=== PATIENT | male | born 1965 | race Caucasian/White ===

== ENCOUNTER 2017-10-09 06:31 | Inpatient (IN) | payer BC ==
[2017-09-10 11:50] VITALS: BMI 35.0
--- NOTE | 2017-09-10 12:22 | PAT Medication Instructions ---
Service Date Sep 10, 2017. Current Home Medication List Aspirin (Aspirin Ec), 81 MG PO QAM Cetirizine (Zyrtec), 10 MG PO HS Diclofenac (Voltaren), 75 MG PO BID Esomeprazole Magnesium (Nexium), 20 MG PO QAM Multivitamin (Multivitamin), 1 TAB PO QAM Simvastatin (Zocor), 20 MG PO QPM Medication Instructions For Your Scheduled Surgery - Hold the following medications 10 days prior to surgery per your surgeon's instructions: Diclofenac (Voltaren), 75 MG PO BID - Hold the following medications the morning of surgery: Multivitamin (Multivitamin), 1 TAB PO QAM - Take the following medications the morning of surgery with a sip of water: Aspirin (Aspirin Ec), 81 MG PO QAM Esomeprazole Magnesium (Nexium), 20 MG PO QAM - Take the following medications as scheduled the night before surgery: Cetirizine (Zyrtec), 10 MG PO HS Simvastatin (Zocor), 20 MG PO QPM If you have any questions please call us at [phone] or [phone] or [phone]
--- NOTE | 2017-09-10 13:07 | DIAGNOSTIC IMAGING REPORT ---
TWO VIEW CHEST CLINICAL HISTORY: Preoperative examination. FINDINGS: PA and lateral chest radiographs are compared to study dated 05/17/2016. The heart is enlarged. The pulmonary vasculature is noncongested. The lungs and pleural spaces are clear. There is no pneumothorax. The bony thorax appears intact. Fusion hardware is noted in the lower cervical spine. IMPRESSION: Cardiac enlargement with no active disease in the chest. Electronically signed by: Erwin Diaz M.D. 09/10/2017 1:05 PM Dictated Date/Time: 09/10/2017 1:04 PM
[2017-09-10 13:30] LABS: BASO % 0.6 %; BASO ABS # 0.03 K/uL (0-0.2); EOS % 3.9 %; HEMATOCRIT 40.3 % (42-52); HEMOGLOBIN 13.3 g/dL (14.0-18.0); LYMPH % 35.3 %; MEAN CELL VOLUME 93.5 fL (80-100); MEAN CORPUSCULAR HEMOGLOBIN 30.9 pg (25-34); MEAN PLATELET VOLUME 11.1 fL (7.4-10.4); MONO % 9.4 %; MONO ABS # 0.48 K/uL (0.11-0.59); NEUT % 50.8 %; NEUT ABS # 2.59 K/uL (1.4-6.5); PLATELET COUNT 196 K/uL (130-400); RED CELL DISTRIBUTION WIDTH CV 12.3 % (11.5-14.5)
[2017-09-10 13:44] LABS: PTT PATIENT 24.8 SECONDS (21.0-31.0)
[2017-09-10 14:06] LABS: CALCIUM 8.8 mg/dl (8.5-10.1); CREATININE 0.86 mg/dl (0.60-1.40); POTASSIUM 4.2 mmol/L (3.5-5.1)
--- NOTE | 2017-10-06 23:08 | HISTORY & PHYSICAL EXAMINATION ---
DATE OF ADMISSION: 10/09/2017 CHIEF COMPLAINT: Right knee pain and discomfort. HISTORY OF PRESENT ILLNESS: A 51-year-old gentleman who is now about 15 months out from right total hip replacement, who presents for surgical treatment of his right knee. He has got a long history of right knee problems. He had ACL reconstructed by Dr. Potter at [facility] 20 years ago. Over the past 5 years, he developed increased pain and discomfort in his knee. We have been treating him with injections which have become less successful over time. His knee hurts all the time. The more he walks, the more it hurts. If he is real active in a day, he really pays for it the next day. He would like to proceed with surgical treatment. PAST MEDICAL HISTORY: 1. Elevated cholesterol. 2. Sleep apnea, with CPAP machine. 3. Neck arthritis. 4. Gastroesophageal reflux disease. 5. Mild obesity. PREVIOUS SURGERIES: Include: 1. Right total hip replacement done 06/16/2016. 2. Left knee scope done 03/28/2011. 3. Right knee bone patella tendon bone [place] [address] Potter. 4. C6/7 neck surgery in 2005. ALLERGIES: YEAST. CURRENT MEDICATIONS: Diclofenac and simvastatin. SOCIAL HISTORY: He is a 51-year-old male. He is from [facility]. He does not smoke. No significant alcohol intake. FAMILY HISTORY: Negative for heart disease, blood clots or diabetes. REVIEW OF SYSTEMS: Negative for diabetes, neurologic problems, vascular problems, bleeding disorders. No chest pain or shortness of breath. No history of DVT or PE. PHYSICAL EXAMINATION: GENERAL: Reveals a healthy, pleasant middle-aged male. He looks to be in good health. HEENT: Benign. NECK: Supple. No lymphadenopathy. LUNGS: Clear to auscultation. HEART: Regular rate and rhythm. ABDOMEN: Soft, nontender, nondistended. EXTREMITIES: Grossly neurovascularly intact except as follows: Examination of the right knee and leg reveals the patient ambulates independently. Does limp a little bit on the right side. He has got well healed incisions around his right knee. Small knee effusion. He has got bony hypertrophy both medially and laterally. Range of motion is 5 to about 120. No instability. X-RAYS: X-rays of the right knee reviewed, show right knee tricompartmental DJD. He has got evidence of previous ACL reconstruction with interference screws in place. ASSESSMENT: A 51-year-old gentleman 20 years out from right knee anterior cruciate ligament reconstruction with right knee pain and discomfort consistent with some degenerative joint disease. He has failed conservative treatment and would like to proceed with surgical treatment. PLAN: We will take him to the operating room and do right total knee replacement. The risks and benefits of this procedure were explained to the patient including but not limited to DVT, PE, , infection, neurological injury, vascular injury, bleeding problem, pain, limited range of motion, stiffness, failure to relieve symptoms, incomplete relief of symptoms, need for further surgery in the future, fracture, leg length inequality, nerve palsy, need for blood transfusion and need for further surgery in the future. He knows the history ____ this may wear out, need to be redone in the future, he is aware and would like to proceed. He stopped his diclofenac 10 days preop. He will bring his CPAP machine to the hospital. We will be planning on taking the hardware out if needed only. See him back 2 weeks postop.
[2017-10-09] VITALS (8 sets, daily range): BP systolic 115–142; BP diastolic 75–91; PULSE 53–67; TEMP 36.4–37; O2SAT 95–100; Ht 190.5 cm; Wt 128.8 kg
[~2017-10-09] VITALS: Ht 190.5 cm; Wt 128.8 kg
[2017-10-09] MEDS: TRANEXAMIC ACID INJ 1,000 MG x 2 Bags IV SCH ×2 (06:30)
[~2017-10-09 06:31] MED LIST: ACETAMINOPHEN 500 MG TAB PO SCH; ASPI81TA28 PO; BUPIVACAINE LIPOSOME 266 MG, BUPIVACAINE/EPINEPHRINE INJ 50 ML, SODIUM CHLORIDE 0.9% PF... INFIL SCH; CEFAZOLIN 3000MG IV PUSH 22.5 ML IV SCH; CETI10TA84 PO; DICL-201 PO; ESOM20CA PO; FAMOTIDINE 20 MG TAB PO SCH; GABAPENTIN 600 MG PO SCH; LACTATED RINGER'S 1000ML 1,000 ML IV SCH; LACTATED RINGER'S 1000ML 500 ML IV SCH; METOCLOPRAMIDE HCL 10 MG TAB PO SCH; MULT-506 PO; SCOPOLAMINE 1.5 MG TDSY TD SCH; SIMV20TA2 PO
--- NOTE | 2017-10-09 06:52 | History & Physical Bridge Note ---
H&P Re-Evaluation Bridge Note: I have examined the patient, reviewed the History & Physical and in the interval since the performance of the History & Physical I have noted the following changes of clinical significance: No changes noted
[2017-10-09] MEDS ORDERED: MIDAZOLAM HCL 1 MG/ML 2ML VIAL ONE ×2 (07:13→10:37)
[2017-10-09] MEDS ORDERED: BUPIVACAINE 0.5 % 5 MG/1 ML PF 10ML VIAL ONE (07:21)
[2017-10-09] MEDS ORDERED: ROPIVACAINE 0.5% 5 MG/ML 30 ML VIAL ONE (07:21)
[2017-10-09] MEDS ORDERED: PHENYLEPHRINE 100MCG/ML 5ML SYR IV PRN (08:00)
[2017-10-09] MEDS ORDERED: EpHEDrine SULFATE INJ 50 MG/ML AMP IV PRN (08:00)
[2017-10-09] MEDS ORDERED: ONDANSETRON INJ 2 MG/ML 2 ML VIAL IV PRN ×2 (08:00→11:15)
[2017-10-09] MEDS ORDERED: ATROPINE SULFATE 0.1 MG/ML 5ML SYR IV PRN (08:00)
[2017-10-09] MEDS ORDERED: HYDROmorphone INJ 2 MG/ML SYR/VIAL IV PRN (08:00)
[2017-10-09] MEDS ORDERED: SODIUM CHLORIDE 0.9% PF 50 ML VIAL ONE (08:53)
[2017-10-09] MEDS ORDERED: BACITRACIN 50000 UNIT VIAL ONE (08:53)
[2017-10-09] MEDS ORDERED: BUPIVACAINE LIPOSOME 1/3% 266 MG/20 ML VIAL INFIL ONE (08:53)
[2017-10-09] MEDS ORDERED: BUPIVACAINE 0.25% 30 ML VIAL ONE (08:54)
[2017-10-09] MEDS ORDERED: VANCOMYCIN HCL 1000MG/20ML VIAL ONE (08:54)
[2017-10-09] MEDS ORDERED: FENTANYL CITRATE INJ 50 MCG/1 ML 2 ML VIAL ONE (09:25)
[2017-10-09] MEDS ORDERED: PROPOFOL IV EMULSION 10 MG/ML 20 ML VIAL IV ONE (09:49)
[2017-10-09] MEDS ORDERED: EpINEphrine HCL INJ 1 MG/ML 1ML SYRINGE IV ONE (10:22)
[2017-10-09] MEDS ORDERED: METOCLOPRAMIDE HCL INJ 5 MG/ML 2 ML VIAL IV PRN (11:15)
[2017-10-09] MEDS ORDERED: BISACODYL 10 MG SUPP PR PRN (11:15)
[2017-10-09] MEDS ORDERED: MoRPHine SULFATE 2 MG/ML CARP IV PRN (11:15)
[2017-10-09] MEDS ORDERED: CEFAZOLIN IV 2,000 MG in DEXTROSE 5% 50ML 50 ML IV SCH (11:15)
[2017-10-09] MEDS ORDERED: TAMSULOSIN HCL 0.4 MG CAP PO PRN (11:15)
[2017-10-09] MEDS ORDERED: ALUMINUM/MAGNESIUM/SIMETH (MAALOX MAX) 30 ML UDC PO PRN (11:15)
[2017-10-09] MEDS ORDERED: SILVER SULFADIAZINE 1% CR 50 GM JAR EXT PRN (11:15)
[2017-10-09] MEDS ORDERED: ZOLPIDEM TARTRATE 5 MG TAB PO PRN (11:15)
[2017-10-09] MEDS ORDERED: DiphenhydrAMINE HCL 50 MG/ML VIAL IV PRN (11:15)
[2017-10-09] MEDS ORDERED: MAGNESIUM HYDROXIDE SUSP 30 ML UDC PO PRN (11:15)
--- NOTE | 2017-10-09 11:15 | [facility] Post Operative Brief Note ---
Immediate Operative Summary Operative Date Oct 09, 2017. Pre-Operative Diagnosis Right knee Degenerative Joint Disease S/P ACL Reconstruction Post-Operative Diagnosis Same as preop Procedure(s) Performed Right Total Knee Arthroplasty; with Hardware Removal from Previous Anterior Cruciate Ligament Repair Surgeon Dr. Hebert Glass Cutter Surgeon(s) Bernardino Velazco PA-C Estimated Blood Loss 50 ml Findings Consistent with Post-Op Diagnosis Fluids (cc crystalloids) 2000 cc Specimens A. Right Knee Bone and Tissue Drains None Anesthesia Type MAC Spinal Regional Complication(s) none Disposition Accompanied Pt To Recover: no Disposition: Recovery Room / PACU
--- NOTE | 2017-10-09 11:52 | Anesthesiology Progress Note ---
Anesthesia Post Op Note Date & Time Oct 09, 2017 at 11:51 Vital Signs Pain Intensity: 0 Vital Signs Past 12 Hours Date Time Temp Pulse Resp B/P (MAP) Pulse Ox O2 Delivery O2 Flow Rate FiO2 10/09/17 11:31 113/71 10/09/17 11:29 57 15 10/09/17 11:29 58 15 99 10/09/17 11:26 114/74 10/09/17 11:24 54 15 10/09/17 11:24 54 15 100 10/09/17 11:21 110/70 10/09/17 11:20 111/73 10/09/17 11:20 36.2 57 12 111/73 96 Nasal Cannula 2 10/09/17 07:04 36.6 67 16 136/86 99 Room Air Notes Mental Status: alert / awake / arousable, participated in evaluation Pt Amnestic to Procedure: Yes Nausea / Vomiting: adequately controlled Pain: adequately controlled Airway Patency, RR, SpO2: stable & adequate BP & HR: stable & adequate Hydration State: stable & adequate Anesthetic Complications: no major complications apparent
--- NOTE | 2017-10-09 12:10 | DIAGNOSTIC IMAGING REPORT ---
R KNEE 2 VIEWS ROUTINE CLINICAL HISTORY: Degenerative arthritis. Postoperative study COMPARISON: None. DISCUSSION: There are postsurgical changes of a total right knee arthroplasty and patellar resurfacing. There is an interference screw within the proximal tibia possibly related to a prior ACL repair the femoral tibial components appear well seated. There is air in the soft tissues consistent with recent surgery. Overlying skin susan are evident IMPRESSION: Postsurgical changes of a total right knee arthroplasty Electronically signed by: Rubens Garcia M.D. 10/09/2017 12:08 PM Dictated Date/Time: 10/09/2017 12:07 PM
--- NOTE | 2017-10-09 12:52 | OPERATIVE REPORT ---
DATE OF OPERATION: 10/09/2017 SURGEON: Dr. Aris Hebert. RIBBON LAP MACHINE TENDER: MAGO Salgado PREOPERATIVE DIAGNOSES: Right knee degenerative joint disease status post anterior cruciate ligament reconstruction. POSTOPERATIVE DIAGNOSES: Same. PROCEDURE PERFORMED: 1. Right total knee replacement. 2. Right knee deep hardware removal. COMPLICATIONS: None. ESTIMATED BLOOD LOSS: 50 mL. FLUID REPLACEMENT: 2000 mL crystalloid fluid replacement. ANESTHESIA: Spinal with adductor canal block. DRAINS: None. SPECIMENS: Right knee sent for pathology. OPERATIVE INDICATIONS: The patient is a 51-year-old fairly active gentleman, who has had a long history of right knee problems. He underwent an ACL reconstruction 20 years ago, done in [place]. Over the past 5 years, he has developed increased pain and discomfort in his knee. I have been following him and put injections in his knee, which became less successful over time. X-rays showed moderate to advanced knee DJD. He elected to proceed with total knee arthroplasty. Of note, the patient had his right hip replaced a little over year ago and has done well from that. OPERATIVE FINDINGS: Operative findings revealed right knee DJD. He had fairly extensive grade 3 changes in all 3 compartments. He had some focal grade 4 changes primarily in the medial compartment, but also scattered elsewhere. Moderate size joint effusion. His arthritis was not quite as bad as expected based on his history and radiographs. His ACL was nearly completely absent. OPERATIVE IMPLANTS: Operative implants consisted of: 1. Biomet Vanguard size 70 right posterior stabilized femoral component. 2. Biomet size 75 tibial tray. 3. A 10-mm posterior stabilized polyethylene insert. 4. A 34 x 8.5 all poly patella. OPERATIVE PROCEDURE: The patient was taken to the operating room, identified and placed on the operating table in the supine position. All contact areas were appropriately padded. IV antibiotics were provided by anesthesia team. A spinal anesthetic and adductor canal block had been provided in the holding area. Wiggins catheter was placed in sterile fashion. A right thigh tourniquet was then placed and the right lower extremity was then prepped and draped in the usual sterile fashion. The right leg was elevated and exsanguinated with Esmarch and tourniquet was placed at 300 mmHg. An anterior approach to the right knee was then performed through a longitudinal incision centered over the patella. Sharp dissection was carried out through the subcutaneous tissues down to the level of the extensor mechanism. A medial parapatellar arthrotomy incision was made. Some subperiosteal dissection was carried out medially. The fat pad was resected from beneath the patellar tendon. I did have to release this a little bit as it was scarred from his previous ACL harvest site. The lateral patellofemoral ligament was released. The patella was subluxated laterally and the knee was flexed. The osteophytes were taken off the distal femur. The ACL and PCL were then released from the distal femur. Of note, there was not much residual ACL remaining. The tibia subluxated anteriorly. The external tibial alignment jig was then placed in the anterior face of the tibia and adjusted 14 mm medially. Proximal tibial cut was made to remove about 3-4 mm of bone from the medial side. There was not much bone destruction and therefore, we took a little extra amount of bone to confer this. Attention was then drawn to the femur. The distal femur was entered with the sharp drill. I attempted to place this down the canal, but I ran into the interference screw. Therefore, I had to spend some time finding the interference screw. I spent 15 minutes cleaning the intercondylar notch area and very carefully and meticulously removing bone with a curette as well as small osteotome until I found the interference screw. The interference screw was removed without incident. The intramedullary canal was then entered again and the IM mathieu was placed up the IM canal without difficulty. A right 6-degree valgus cutting guide was placed. The distal femoral cutting block was pinned in place. Distal femoral cut was made to take an additional 3 mm of bone off the distal femur. The femur was then sized to a size 70. We downsized this slightly. The AP cutting block was pinned parallel to the epicondylar axis, which was 3 degrees of external rotation. The anterior cut, anterior chamfer, posterior cut, and posterior chamfer cuts were made. Box cutting guide was placed and adjusted slightly lateral and the box cut was made. The knee was flexed. The remnants of the medial and lateral menisci were excised. The osteophytes were taken off the posterior aspect of the femur. A trial femoral component was placed. Tibial tray was pinned in maximum external rotation and drill and stem punch were used to create defect in proximal tibia for the tibial tray. I took great care to make sure that we were not going to run into the tibial interference screw and we left this in place. The tibia was then trialed and the tibia was then drilled and punched for the keel. The tibia was tried and a 10-mm insert fit most appropriately. Attention was then drawn to the patella. The patella was cleaned of all soft tissues. Patella thickness measured 23 mm and it was cut down to 15. I left it a little thicker due to the previous bone harvest from the patella for the ACL reconstruction. It did not look like they bone grafted the patellar defect. Having said that, we did not run into a deficient bone. The patella was then sized to a size 34. Lug holes were drilled for a 34 patella. Lateral osteophyte was removed. Patella button was placed. Knee was taken through range of motion and patella tracked nicely with no thumbs test. Attention was then drawn toward placement of the permanent components. All trial components were removed. A bone plug was placed in the distal femur to limit blood loss. A double batch of Palacos G cement was mixed. I had to add an additional gram of vancomycin due to his history of previous surgeries in the past. A right size 70 posterior stabilized femoral component, a size 75 tibial tray, a 10-mm posterior stabilized polyethylene insert, and a 34 x 8.5 all poly patella were then cemented in place. Knee was brought out into full extension until cement hardened. A final cement check was then performed. Pericapsular tissues were injected with a total of 100 mL of a combination of 20 mL of Exparel, 30 mL of normal saline, and 50 mL of 0.25% Marcaine with epinephrine. The patient did receive 1 gram of tranexamic acid. The tourniquet was then let down for final tourniquet time of 74 minutes. Hemostasis was assured with the use of electrocautery. The wound was once again irrigated. The extensor mechanism was then closed with a combination of #1 PDS suture and #1 Vicryl suture in a [id number] fashion. Extensor mechanism was checked and found to be intact. The subcutaneous tissues were then closed with 2-0 Dexon suture in a buried interrupted fashion. Skin was closed with skin susan. The leg was then cleaned and dried and a sterile dressing of Xeroform, 4 x 4, sterile cast padding and Carrillo bandage were applied. The patient then transferred to the recovery room in stable condition. The patient tolerated the procedure well with no complications. All needle and sponge counts were correct at the end of the operation. I attest to the content of the Intraoperative Record and any orders documented therein. Any exceptions are noted below. MTDD
[2017-10-09] MEDS: D5W AND 1/2NSS + 20MEQ KCL 1,000 ML IV SCH ×2 (13:42→20:08)
[2017-10-09] MEDS: ACETAMINOPHEN 500 MG TAB PO SCH ×2 (13:42→21:35)
[2017-10-09] MEDS: OXYCODONE HCL IR 5 MG TAB (IMMEDIATE RELEASE) PO PRN (15:13)
[2017-10-09] MEDS: CHECK SCOPOLAMINE PATCH PLACEMENT SCH (15:14)
[2017-10-09] MEDS ORDERED: TRANEXAMIC ACID INJ 1,000 MG in SODIUM CHLORIDE 0.9% 100ML 100 ML IV SCH (17:00)
[2017-10-09] MEDS: KETOROLAC TROMETHAMINE 30 MG/ML VIAL IV. SCH (17:27)
[2017-10-09] MEDS: CEFAZOLIN IV 2,000 MG in SYRINGE 0 ML IV SCH (17:47)
--- NOTE | 2017-10-09 17:47 | PROGRESS NOTE ---
DATE: 10/09/2017 SUBJECTIVE: A 51-year-old gentleman postop from a right knee replacement. He is doing pretty well. The block wore off and he is pretty painful. Denies any chest pain or shortness of breath. Not feeling dizzy or lightheaded. OBJECTIVE: VITAL SIGNS: Temperature 36.7. Vital signs stable. GENERAL: Reveals a pleasant, middle-aged male. He is sitting up in bed, looks reasonably comfortable. He is talking to his . LUNGS: Clear to auscultation. HEART: Regular rate and rhythm. ABDOMEN: Soft, nontender, nondistended. EXTREMITIES: Grossly neurovascularly intact except as follows. Examination of the right lower extremity reveals the leg to be well aligned. He can dorsiflex and plantarflex his foot appropriately. He is neurologically intact. Good distal pulses and brisk refill. ASSESSMENT: A 51-year-old gentleman postop from a right knee replacement and hardware removal, doing well. His pain is reasonably well controlled. We need to catch up a little bit as the block is worn off. He is neurologically intact. PLAN: 1. DVT prophylaxis including thigh-high TEDs, SCDs, and aspirin twice a day. 2. PT/OT. Weightbearing as tolerated. Right total knee protocol. 3. Pain control. Doing okay with current pain regimen. We will need to catch up a little bit now as the spinal has worn off. 4. IV antibiotics x24 hours. 5. Disposition: Plan to discharge to home and likely do outpatient therapy.
[2017-10-09] MEDS: FERROUS GLUCONATE 324 MG TAB PO SCH (17:53)
[2017-10-09] MEDS: SENNA 8.6 MG TAB PO SCH (21:34)
[2017-10-09] MEDS: DOCUSATE SODIUM 100 MG CAP PO SCH (21:34)
[2017-10-09] MEDS: CETIRIZINE HCL 10 MG TAB PO SCH (21:34)
[2017-10-09] MEDS: SIMVASTATIN 20 MG TAB PO SCH (21:35)
[2017-10-09] MEDS: ASPIRIN 81 MG ECTAB PO SCH (21:35)
[2017-10-09] MEDS: TAPENTADOL ER 50 MG TABCR PO SCH (21:35)
[2017-10-10] VITALS (8 sets, daily range): BP systolic 104–144; BP diastolic 63–86; PULSE 64–70; TEMP 36.6–37.2; O2SAT 95–99
[2017-10-10] MEDS: CHECK SCOPOLAMINE PATCH PLACEMENT SCH ×4 (00:27→23:47)
[2017-10-10] MEDS: KETOROLAC TROMETHAMINE 30 MG/ML VIAL IV. SCH ×5 (00:28→23:46)
[2017-10-10] MEDS: D5W AND 1/2NSS + 20MEQ KCL 1,000 ML IV SCH ×2 (01:35→08:27)
[2017-10-10] MEDS: CEFAZOLIN IV 2,000 MG in SYRINGE 0 ML IV SCH (01:35)
[2017-10-10] MEDS: ACETAMINOPHEN 500 MG TAB PO SCH ×3 (05:29→21:06)
[2017-10-10 06:19] LABS: HEMATOCRIT 36.7 % (42-52); HEMOGLOBIN 12.4 g/dL (14.0-18.0); MEAN CELL VOLUME 93.9 fL (80-100); MEAN CORPUSCULAR HEMOGLOBIN 31.7 pg (25-34); MEAN CORPUSCULAR HGB CONC 33.8 g/dl (32-36); MEAN PLATELET VOLUME 9.8 fL (7.4-10.4); PLATELET COUNT 177 K/uL (130-400); RED CELL DISTRIBUTION WIDTH CV 12.6 % (11.5-14.5); RED CELL DISTRIBUTION WIDTH SD 42.4 fL (36.4-46.3); WHITE BLOOD COUNT 7.39 K/uL (4.8-10.8)
[2017-10-10] MEDS: TRANEXAMIC ACID INJ 1,000 MG x 2 Bags IV SCH ×2 (06:30)
[2017-10-10 06:52] LABS: CREATININE 1.03 mg/dl (0.60-1.40); POTASSIUM 4.1 mmol/L (3.5-5.1)
--- NOTE | 2017-10-10 08:04 | Anesthesiology Progress Note ---
Anesthesia Post Op Note Date & Time Oct 10, 2017 at 08:04 Vital Signs Pain Intensity: 6.0 Vital Signs Past 12 Hours Date Time Temp Pulse Resp B/P (MAP) Pulse Ox O2 Delivery O2 Flow Rate FiO2 10/10/17 07:53 36.9 66 16 120/84 (96) 99 Room Air 10/10/17 07:10 Room Air 10/10/17 03:30 36.6 64 16 122/77 (92) 95 Room Air 10/10/17 01:16 16 95 Room Air 10/10/17 00:25 Room Air 10/09/17 23:17 37.0 61 15 115/75 (88) 96 Room Air 10/09/17 22:00 CPAP 10/09/17 20:42 37.0 61 16 135/83 (100) 95 Room Air Notes Mental Status: alert / awake / arousable, participated in evaluation Pt Amnestic to Procedure: Yes Nausea / Vomiting: adequately controlled Pain: adequately controlled Airway Patency, RR, SpO2: stable & adequate BP & HR: stable & adequate Hydration State: stable & adequate Neuraxial Anesthesia: was administered, sensory block resolved Anesthetic Complications: no major complications apparent
[2017-10-10] MEDS: FERROUS GLUCONATE 324 MG TAB PO SCH ×3 (08:28→17:47)
[2017-10-10] MEDS: MULTIVITAMIN TAB PO SCH (08:28)
[2017-10-10] MEDS: ASPIRIN 81 MG ECTAB PO SCH ×2 (08:28→21:06)
[2017-10-10] MEDS: DOCUSATE SODIUM 100 MG CAP PO SCH ×2 (08:28→21:06)
[2017-10-10] MEDS: PANTOprazole SOD 40 MG TAB PO SCH (08:28)
[2017-10-10] MEDS: TAPENTADOL ER 50 MG TABCR PO SCH ×2 (08:31→21:04)
[2017-10-10] MEDS: OXYCODONE HCL IR 5 MG TAB (IMMEDIATE RELEASE) PO PRN ×4 (08:31→21:05)
[2017-10-10] MEDS ORDERED: MULTIVITAMIN TAB PO SCH (09:00)
[2017-10-10] MEDS ORDERED: PANTOprazole SOD 40 MG TAB PO SCH (09:00)
--- NOTE | 2017-10-10 20:35 | PROGRESS NOTE ---
DATE: 10/10/2017 SUBJECTIVE: A 51-year-old gentleman postop day #1 from a right knee replacement. Doing pretty well. Pain has been reasonably well controlled. No chest pain or shortness of breath. Not feeling dizzy or lightheaded. OBJECTIVE: VITAL SIGNS: Temperature 37.2. Vital signs stable. GENERAL: Reveals a pleasant, middle-aged male. He is sitting in his bedside chair and looks pretty comfortable. EXTREMITIES: Examination of the right leg reveals the dressing to be clean, dry, and intact. He can dorsiflex and plantarflex his foot appropriately. He is neurologically intact. LABORATORY DATA: Hemoglobin 12.4. Hematocrit 36.7. Electrolytes are stable. ASSESSMENT: A 51-year-old gentleman postop day #1 from a knee replacement, doing pretty well. Pain is reasonably well controlled. He is neurologically intact. PLAN: 1. DVT prophylaxis including thigh-high TEDs, SCDs, and aspirin twice daily. 2. PT/OT. Weightbear as tolerated. Right total knee protocol. 3. Pain control. Doing reasonably well with current pain regimen. 4. Disposition: Plan to discharge to home with some home health once adequately recovered.
[2017-10-10] MEDS: SIMVASTATIN 20 MG TAB PO SCH (21:04)
[2017-10-10] MEDS: SENNA 8.6 MG TAB PO SCH (21:04)
[2017-10-10] MEDS: CETIRIZINE HCL 10 MG TAB PO SCH (21:05)
[2017-10-10] MEDS ORDERED: RXC5 PO (22:38)
[2017-10-10] MEDS ORDERED: ASPEC81 PO (22:38)
[2017-10-10] MEDS ORDERED: ACET-24 PO (22:38)
--- NOTE | 2017-10-10 22:40 | Discharge Instructions ---
Discharge Instructions Date of Service Oct 10, 2017. Admission Reason for Admission: Right Knee Degenerative Joint Disease, Knee Pain Discharge Discharge Diagnosis / Problem: Right Knee Replacement Discharge Goals Goal(s): Decrease discomfort, Improve function, Increase independence, Improve disease control, Therapeutic intervention Activity Recommendations Activity Limitations: per Instructions/Follow-up section Weightbearing Status: Right weightbearing . Instructions / Follow-Up Instructions / Follow-Up ACTIVITY RECOMMENDATIONS: Physical Therapy: * You will go to physical therapy three times each week for four to six weeks after your surgery in order to regain your knee range of motion and to retrain your knee to work properly. * It is just as important to make sure you are getting your knee perfectly straight as it is to regain your knee bend. * Taking a pain pill an hour before therapy can help you have a more productive and comfortable therapy session. Home Exercise: * You were shown a series of exercises (heel props, heel slides, etc.) in the hospital. Do these exercises three to four times each day including the exercises you were shown in physical therapy. Walking: * Get up and walk several times each day. For the first four weeks, try not to stand or walk for more than one hour at a time. If you do stand or walk for more than one hour, you will not hurt anything, but your knee and leg will likely swell. * As you feel comfortable, you may change from the walker or crutches to a cane and then to independent walking. MEDICATIONS: New Medicine: * You will likely be taking one or more of these medications: 1. Oxycodone - A quick and short-acting pain medication. Take one to two tablets every four to six hours to lessen your pain. 2. Aspirin - Thins your blood to lessen the chance of forming a blood clot. * The most common side effects of pain medicine and iron are nausea and constipation. If nausea or constipation is too much of a problem or if you have any questions about your new medicines or doses, call [facility] at [phone]. We will try to help you manage these issues. VERY IMPORTANT TO READ AND REVIEW" Pain: * The immediate post-operative period after knee replacement surgery is often quite painful. * You are given a prescription for pain medicine. You should take it, as directed, when you need it, especially before physical therapy and before going to bed. Pain that interferes with sleep is very common and can last several months. * You will likely need pain medicine for the first four to six weeks. It will not stop all of the pain. The pain will lessen and as you feel better, you may change to milder pain medicine such as Tylenol. * The most common side effects of pain medicine are nausea and constipation, so don't take more than you need. SPECIAL CARE INSTRUCTIONS: TEDs/Elastic Stockings: * The white elastic stockings help limit swelling and prevent blood clots from forming in your legs. The more you wear them, the more they work. * Wear them for six weeks after knee replacement surgery and four weeks after partial knee replacement. Prevention of Infection: * Take antibiotics one hour before any dental cleaning, dental work, urological procedure, gastrointestinal procedure or any invasive surgery in order to prevent your new joint from getting infected. * You may get the antibiotics from the doctor performing the procedure or you may call our office at before and we will call in a prescription to the pharmacy of your choice. Things to Watch For: * Drainage from the incision site that occurs more than one week after your surgery. * Severely increased knee/leg pain or swelling. * Increased redness at the incision site. * Fever above 102 degrees Fahrenheit. * Unusual chest pain or shortness of breath. * Unusual pain or burning with urination. Call [facility] at with any of the above problems or if you have any questions about your medicines or recovery. FOLLOW UP VISIT: Make an appointment to see your doctor for approximately two weeks after surgery for a progress check and staple removal by calling the office at . Current Hospital Diet Patient's current hospital diet: Regular Diet Discharge Diet Recommended Diet: Regular Diet Procedures Procedures Performed: Right Total Knee Arthroplasty; with Hardware Removal from Previous Anterior Cruciate Ligament Repair Pending Studies Studies pending at discharge: no Medical Emergencies . Who to Call and When: Medical Emergencies: If at any time you feel your situation is an emergency, please call [phone] immediately. . Non-Emergent Contact Non-Emergency issues call your: Surgeon . "Provider Documentation" section prepared by Aris Hebert. . VTE Core Measure Inpt VTE Proph given/why not?: Other Anticoagulation, T.E.D. Stockings, SCD's
[2017-10-11] MEDS: ACETAMINOPHEN 500 MG TAB PO SCH (05:58)
[2017-10-11] MEDS: KETOROLAC TROMETHAMINE 30 MG/ML VIAL IV. SCH (05:59)
[2017-10-11 07:00] VITALS: BP 124/80; PULSE 65; TEMP 36.8; O2SAT 94
--- NOTE | 2017-10-11 07:49 | PROGRESS NOTE ---
DATE: 10/11/2017 SUBJECTIVE: A 51-year-old gentleman postop day #2 from right knee replacement, doing pretty well. Pain seems to be improved significantly over the past 24 hours. No chest pain or shortness of breath. Not feeling dizzy or lightheaded. OBJECTIVE: VITAL SIGNS: Temperature 36.8. Vital signs stable. GENERAL: Physical examination reveals a pleasant, middle-aged male. He is sitting up in bed and looks comfortable. EXTREMITIES: Examination of the right leg reveals the incision to be clean, dry and intact. No significant drainage. Calf is soft and supple. He is neurologically intact. ASSESSMENT: A 51-year-old gentleman postop day 2 from a right knee replacement, doing well. Pain seems to be improved. PLAN: 1. DVT prophylaxis including thigh-high TEDs, SCDs, and aspirin twice a day. 2. PT/OT. Weight bear as tolerated. Right total knee protocol. 3. Pain control, doing well with current pain regimen. 4. Disposition: Plan to discharge to home with some home health later today.
[2017-10-11] MEDS: CHECK SCOPOLAMINE PATCH PLACEMENT SCH (08:05)
[2017-10-11 08:06] VITALS: BP 124/80; PULSE 65; TEMP 36.8; O2SAT 94
[2017-10-11] MEDS: ASPIRIN 81 MG ECTAB PO SCH (08:53)
[2017-10-11] MEDS: DOCUSATE SODIUM 100 MG CAP PO SCH (08:54)
[2017-10-11] MEDS: MULTIVITAMIN TAB PO SCH (08:54)
[2017-10-11] MEDS: PANTOprazole SOD 40 MG TAB PO SCH (08:54)
[2017-10-11] MEDS: FERROUS GLUCONATE 324 MG TAB PO SCH (08:54)
[2017-10-11] MEDS: OXYCODONE HCL IR 5 MG TAB (IMMEDIATE RELEASE) PO PRN (08:58)
[2017-10-11] MEDS: TAPENTADOL ER 50 MG TABCR PO SCH (08:58)
== END 2017-10-11 10:40 | disposition home health service (06) | DRG 470 ==
LOC: C.ACU 06:31 → C.3E 11:19 → ENRESERV 11:52
PROVIDERS: ADMIT Orthopaedic Surgery Sports Medicine; ATTEND Orthopaedic Surgery Sports Medicine
PROC: 0QPB04Z Removal of Internal Fixation Device from Right Lower Femur, Open Approach (ICD-10-PCS; principal; 2017-10-09 09:00)
PROC: 0SRC0J9 Replacement of Right Knee Joint with Synthetic Substitute, Cemented, Open Approach (ICD-10-PCS; principal; 2017-10-09 09:00)
DX: M17.11 Unilateral primary osteoarthritis, right knee (principal); Z98.890 Other specified postprocedural states; G47.30 Sleep apnea, unspecified; E78.00 Pure hypercholesterolemia, unspecified; E66.9 Obesity, unspecified; Z79.899 Other long term (current) drug therapy; Z79.1 Long term (current) use of non-steroidal anti-inflammatories (NSAID); Z96.641 Presence of right artificial hip joint; Z68.35 Body mass index [BMI] 35.0-35.9, adult; Z91.02 Food additives allergy status

== ENCOUNTER 2025-05-15 06:24 | Inpatient (IN) ==
--- NOTE | 2025-04-16 13:18 | PAT Medication Instructions ---
Medication Instructions Date of Service April 16, 2025 Home Medications cetirizine 10 mg capsule (Zyrtec) 10 mg PO HS esomeprazole magnesium 20 mg capsule,delayed release (Nexium) 20 mg PO QAM simvastatin 20 mg tablet 20 mg PO HS sildenafil (pulm.hypertension) 20 mg tablet 20 mg PO UD PRN Erectile Dysfunction aspirin 81 mg tablet 81 mg PO QAM cholecalciferol (vitamin D3) 25 mcg (1,000 unit) capsule 25 mcg PO DAILY Probiotic 2 cap PO DAILY coenzyme Q10 75 mg capsule 75 mg PO DAILY [id number] 300 mcg-K 60 mcg-lycop 600 mcg-lutein 300 mcg tablet ([employer]) 1 tab PO DAILY diclofenac sodium 75 mg tablet,delayed release 75 mg PO BID vitamin C 45 mg-zinc citrate 4 mg-elderberry 50 mg chewable tablet ([employer]) 1 tab PO DAILY ASK your surgeon for instructions diclofenac sodium 75 mg tablet,delayed release 75 mg PO BID ASK your prescriber and surgeon aspirin 81 mg tablet 81 mg PO QAM STOP taking 2 weeks before surgery (or as soon as possible) coenzyme Q10 75 mg capsule 75 mg PO DAILY vitamin C 45 mg-zinc citrate 4 mg-elderberry 50 mg chewable tablet ([employer]) 1 tab PO DAILY STOP taking 24 hours before surgery sildenafil (pulm.hypertension) 20 mg tablet 20 mg PO UD PRN Erectile Dysfunction DO NOT take the morning of surgery cholecalciferol (vitamin D3) 25 mcg (1,000 unit) capsule 25 mcg PO DAILY Probiotic 2 cap PO DAILY ozokmzmb-wb-samju 300 mcg-K 60 mcg-lycop 600 mcg-lutein 300 mcg tablet ([employer]) 1 tab PO DAILY Take morning of surgery With a small sip of water, OTHERWISE NOTHING TO EAT OR DRINK AFTER MIDNIGHT: esomeprazole magnesium 20 mg capsule,delayed release (Nexium) 20 mg PO QAM Take evening before surgery cetirizine 10 mg capsule (Zyrtec) 10 mg PO HS simvastatin 20 mg tablet 20 mg PO HS Other Notes If you have any questions please call us at [phone] or [phone] or [phone] or [phone]
--- NOTE | 2025-04-22 09:00 | Anesthesiology Consultation ---
Date of Service April 22, 2025 Assessment & Plan (1) Encounter for pre-operative examination: - cardiology clearance 04/06/25: "...no cardiac recommendation at this time...is at low risk for the above mentioned surgery..." - potential difficult intubation: s/p multiple cervical spine surgeries, limited ROM. Chart Review Chart Review: Acceptable Risk for Surgery and Patient seen in Pre Admission Testing Teaching & Discussion Pre-Anesthesia Teaching/Discussion Notes: Instructed NPO after midnight before surgery, except medications with 15 cc of water. Medication instructions pr ovided according to the PAT guidelines. History Surgery Operation Date: 05/04/25 07:30 Proposed Procedures p Oblique Lumbar Interbody Fusion L4-5, L4-5 Posterior Fusion, L4-L5 Laminectomy, L5-S1 Discectomy - Erwin Jeffries MD Height/Weight Height: 6 ft 3 in Weight: 121.1 kg Allergies Allergy/AdvReac Type Severity Reaction Status Date / Time No Known Drug Allergies Allergy Unknown . Verified 04/15/25 13:51 Yeast AdvReac Mild "Can't Verified 04/15/25 16:17 breathe"/nasal congestion Medications Home Medications Medication Instructions Recorded Confirmed Last Taken cetirizine 10 mg capsule (Zyrtec) 10 mg PO HS 10/02/18 04/15/25 07/30/22 esomeprazole magnesium 20 mg 20 mg PO QAM 10/02/18 04/15/25 07/30/22 capsule,delayed release (Nexium) simvastatin 20 mg tablet 20 mg PO HS 10/02/18 04/15/25 07/30/22 sildenafil (pulm.hypertension) 20 20 mg PO UD PRN Erectile 05/13/19 04/15/25 Unknown mg tablet Dysfunction #30 tabs aspirin 81 mg tablet 81 mg PO QAM 09/15/20 04/15/25 07/30/22 cholecalciferol (vitamin D3) 25 25 mcg PO DAILY 05/19/21 04/15/25 07/30/22 mcg (1,000 unit) capsule Probiotic 2 cap PO DAILY 06/12/22 04/15/25 07/30/22 coenzyme Q10 75 mg capsule 75 mg PO DAILY 06/12/22 04/15/25 07/30/22 yjgmoahw-ke-oxalg 300 mcg-K 60 1 tab PO DAILY 06/12/22 04/15/2507/30/22 mcg-lycop 600 mcg-lutein 300 mcg tablet ([employer]) diclofenac sodium 75 mg 75 mg PO BID 03/20/25 04/15/25 Unknown tablet,delayed release vitamin C 45 mg-zinc citrate 4 1 tab PO DAILY 04/15/25 04/15/25 Unknown mg-elderberry 50 mg chewable tablet ([employer]) Past Medical History Medical History (Updated 04/22/25 @ 09:14 by Leah Castillo PA-C) Acid reflux controlled, stable per pt Arthritis Hyperlipidemia Lumbar herniated disc L5-S1 Sleep apnea CPAP-compliant Spinal stenosis at L4-L5 level Patient denies h/o stroke, seizures, heart attack, heart failure, DM, HTN, blood clots/DVTs or blood transfusions. Exercise / Class Metabolic Activity II 4-5 Yardwork/Stairs/Walk up hill (denies chest discomfort or shortness of breath with one flight of stairs) Past Family History Family History Grandmother Family history of colon cancer Family history of stomach cancer Other Family history of heart attack Family history of heart disease No family history of adverse response to anesthesia Past Surgical History Surgical History History of arthroscopy of left knee History of arthroscopy of right knee History of bilateral knee replacement Per records History of cardiac cath - "no findings" Told symptoms r/t stress and reflux History of colonoscopy History of hand surgery Left wrist ganglion cyst x2 History of left cataract surgery History of nasal polypectomy X2 History of neck surgery C6-7 bone graft/plate for herniated disc (2006) Hardware, C5-C6 (2022) History of repair of left rotator cuff History of repair of rotator cuff Right shoulder History of right cataract surgery History of total right hip replacement Status post uvulopalatopharyngoplasty Past Anesthesia History No Hx of Anesthesia Complications and No Family Hx of Anesthesia Complications History of PONV No Hx of PONV and No Hx of Motion Sickness Social History Smoking Status: Current some day smoker (-advised) tobacco type: smokeless tobacco Smoking cigarettes per day: smoking 2-3 cigars a yr/last 07/2024 Do You Dip or Chew Tobacco: Yes (hx chew tobacco quit 2023, current: nicotine pouches 2-3/day, advised) Hx Alcohol Use: Yes Alcohol type: beer and hard liquor alcohol intake frequency: a few times a week Hx Substance Use: No substance use type: does not use Review of Systems Patient denies chest pain, shortness of breath, dyspnea on exertion, fever, chills, cough, wheezing, or palpitations. Physical Exam Vital Signs Vitals BP 121/80 P 70 TEMP 97.9 SP02 97% on RA RESP 18 Physical Patient resting comfortably in chair in no acute distress, alert and oriented, responding appropriately throughout visit Mildly limited cervical extension range of motion without pain TMD 3.5 finger breadths Mallampati Score 3 Dentition: several caps/crowns, denies chipped or loose teeth, implants or bridges Lungs: normal respiratory effort. Good air movement, clear throughout to auscultation, no adventitious breath sounds Cardiac: regular rate and rhythm, no murmurs noted Carotid arteries: negative bruit bilat Lab Results Anesthesia Preop Results Results Anesthesia Widget: PT 10.9 Seconds (9.0-12.0) 04/22/25 PTT 27 Seconds (21-31) 04/22/25 INR 1.0 (0.9-1.1) 04/22/25 HA1c 6.0 % (4.5-5.6) H 04/22/25 Blood Type B Positive 04/22/25 Antibody Screen NEGATIVE 04/22/25 Testing Laboratory Results 04/20/25 WBC: 6.3 H/H: 12/ PLATELETS: 185,000 SODIUM: 137 POTASSIUM: 3.9 CHLORIDE: 108 CO2: 25 BUN: 18 CREATININE: 0.9 GLUCOSE: 113 Alk phos: 75 AST: 26 ALT: 51 Electrocardiogram Date: 04/22/25 NSR, rate [address] abnormality Chest X-Ray Date: 04/22/25 No acute findings. Stress Test Date: 02/06/23 MPHR 89% Negative for wall motion abnormality at moderate level of exercise Stress ECG is consistent with myocardial ischemia EF 55-60%
[~2025-05-15 06:24] MED LIST changes: -ASPI81TA28 PO; -BUPIVACAINE LIPOSOME 266 MG, BUPIVACAINE/EPINEPHRINE INJ 50 ML, SODIUM CHLORIDE 0.9% PF... INFIL SCH; -CEFAZOLIN 3000MG IV PUSH 22.5 ML IV SCH; -CETI10TA84 PO; -DICL-201 PO; -ESOM20CA PO; -FAMOTIDINE 20 MG TAB PO SCH; -GABAPENTIN 600 MG PO SCH; -LACTATED RINGER'S 1000ML 1,000 ML IV SCH; -LACTATED RINGER'S 1000ML 500 ML IV SCH; +LR 15ML/HR IV SCH; +LR 60ML/HR IV SCH; -METOCLOPRAMIDE HCL 10 MG TAB PO SCH; -MULT-506 PO; -SCOPOLAMINE 1.5 MG TDSY TD SCH; -SIMV20TA2 PO; +ceFAZolin 3000MG 3,000 MG/72.5 ML BAG IV SCH
[2025-05-15] MEDS ORDERED: PROPOFOL IV EMULSION 10 MG/ML 100 ML VIAL IV ONE ×3 (06:48→10:16)
[2025-05-15] MEDS ORDERED: MIDAZOLAM HCL 1 MG/ML 2ML VIAL ONE (06:52)
[2025-05-15] MEDS ORDERED: DEXAMETHASONE SOD INJ 4 MG/ML VIAL ONE ×2 (06:53)
[2025-05-15] MEDS ORDERED: LIDOCAINE 2% 2 ML VIAL/AMP(20MG/ML) INFIL ONE ×2 (06:53)
[2025-05-15] MEDS ORDERED: ONDANSETRON INJ 2 MG/ML 2 ML VIAL ONE ×2 (06:53→11:19)
[2025-05-15] MEDS ORDERED: SUCCINYLCHOLINE CHLORIDE 20 MG/ML 10 ML VIAL IV ONE (06:53)
[2025-05-15] MEDS ORDERED: PROPOFOL IV EMULSION 10 MG/ML 20 ML VIAL IV ONE ×2 (06:53→06:54)
[2025-05-15] MEDS: LR 60ML/HR IV SCH (06:55)
[2025-05-15] MEDS: LR 15ML/HR IV SCH (06:55)
[2025-05-15] MEDS: ACETAMINOPHEN 500 MG TAB PO SCH (06:57)
[2025-05-15] MEDS ORDERED: PHENYLEPHRINE HCL 10 MG/ML VIAL ONE (07:00)
[2025-05-15] MEDS ORDERED: REMIFENTANIL HCL 1 MG VIAL IV ONE ×3 (07:03→10:25)
[2025-05-15] MEDS ORDERED: KETAMINE HCL 10MG/ML SYR ONE ×2 (07:03→09:04)
--- NOTE | 2025-05-15 07:20 | History & Physical Report ---
Date of Service May 15, 2025 Assessment & Plan (1) Lumbosacral disc herniation: (2) Spondylolisthesis, lumbar region: (3) Lumbar radiculopathy: (4) Lumbar stenosis with neurogenic claudication: Plan Plan: Discussed treatment options with the patient today. Given the severity of the stenosis and foraminal stenosis at L4-5 as well as the lateral listhesis there and asymmetric disc narrowing which creates coronal deformity he would benefit from lumbar decompression and fusion, will plan for transforaminal lumbar interbody fusion to fuse the anterior column with interbody spacer placement, during the same procedure I would instrument the posterior L4 and L5 level and decorticate the facet joints for posterior fusion at L4-5 as well as an L5 S1 hemilaminectomy and discectomy/medial facetectomy to decompress the traversing nerve root at L5-S1. Original plan was for an Oblique anterior fusion however this has been changed given patient's anatomy and access surgeon availability to posterior fusion. Discussed with patient and he wishes to proceed with posterior fusion. Patient has been evaluated for preoperative risk stratification. We discussed surgical intervention at length, and the patient was informed that risks include but are not limited to: bleeding and possible need for blood transfusion, infection, blood clots to extremities or lungs, no relief of symptoms, dural tear, nerve injury, paralysis, weakness, pain, instrumentation failure, prolonged recovery, need for physical therapy or rehabilitation services, loss of bowel/bladder control, recurrent stenosis or disc herniation, need for more surgery, and in very rare instances even . We also discussed that there is risk of pseudarthrosis formation, failure of the fusion to occur which may increase chances of instrumentation failure or need for further surgery. We also discussed that fusing the spine puts the patient at risk for adjacent segment breakdown and possible need for future surgery, the risk is approximately 3-5% per year. The patient voiced understanding of the risks and benefits of surgery and elected to proceed. History of Present Illness Chief Complaint: Low Back and pain Primary Care Provider: Aris Griffith Patient is a pleasant 59-year-old gentleman who comes in today for evaluation of his lumbar stenosis with radiculopathy. He has seen my partner Dr. Hebert with concerns of pain radiating to his bilateral legs as he has had a total hip arthroplasty with him in the past. Hip implant was found to be in good position and an MRI was obtained, showed severe stenosis at the L4-5 level as well as an L5-S1 disc herniation. Patient has been taking diclofenac which he states takes the edge off the symptoms however does not completely remove them. He has also been seeing a chiropractor/physical therapist for greater than 6 weeks and has had only minor improvement, he also has a home exercise program that they provided which he has been doing on his own. He has not had any epidural injections, he reports he has had 2 prior cervical surgeries and the injections have not helped so he would like to avoid them if possible. Reports subjective weakness with ambulation. He has had the symptoms for greater than 1 year, no issues with bowel or bladder control. He reports the pain started to be worse on the left side, describes pain radiating into the superior gluteal region down the outside of the left leg lateral calf and top of the foot consistent with an L5 dermatomal pattern. He has similar symptoms on the right to a lesser degree. Approximately 6 months ago he started having pain down the right posterior leg to consistent with S1 dermatomal pattern. Allergies Allergy/AdvReac Type Severity Reaction Status Date / Time No Known Drug Allergies Allergy Unknown . Verified 05/15/25 06:27 Yeast AdvReac Mild "Can't Verified 05/15/25 06:27 breathe"/nasal congestion Home Medications Medication Instructions Recorded Confirmed Type cetirizine 10 mg capsule (Zyrtec) 10 mg PO HS 10/02/18 05/15/25 History esomeprazole magnesium 20 mg 20 mg PO QAM 10/02/18 05/15/25 History capsule,delayed release (Nexium) simvastatin 20 mg tablet 20 mg PO HS 10/02/18 05/15/25 History sildenafil (pulm.hypertension) 20 20 mg PO UD PRN Erectile 05/13/19 05/15/25 History mg tablet Dysfunction #30 tabs aspirin 81 mg tablet 81 mg PO QAM 09/15/20 05/15/25 History cholecalciferol (vitamin D3) 25 25 mcg PO DAILY 05/19/21 05/15/25 History mcg (1,000 unit) capsule Probiotic 2 cap PO DAILY 06/12/22 05/15/25 History coenzyme Q10 75 mg capsule 75 mg PO DAILY 06/12/22 05/15/25 History amawzysa-cn-xmfcu 300 mcg-K 60 1 tab PO DAILY 06/12/22 05/15/25 History mcg-lycop 600 mcg-lutein 300 mcg tablet ([employer]) diclofenac sodium 75 mg 75 mg PO BID 03/20/25 05/15/25 History tablet,delayed release vitamin C 45 mg-zinc citrate 4 1 tab PO DAILY 04/15/25 05/15/25 History mg-elderberry 50 mg chewable tablet ([employer]) Past Med/Surg History Problem List Lumbosacral disc herniation Spondylolisthesis, lumbar region Lumbar radiculopathy Lumbar stenosis with neurogenic claudication Hip pain Lumbar spondylosis Encounter for pre-operative examination Left rotator cuff tear Nocturnal hypoxemia Severe obstructive sleep apnea Degenerative joint disease of left hip Rotator cuff syndrome of left shoulder Medical History Lumbar herniated disc L5-S1 Spinal stenosis at L4-L5 level Arthritis Sleep apnea CPAP-compliant Acid reflux controlled, stable per pt Hyperlipidemia Surgical History History of left cataract surgery History of right cataract surgery History of bilateral knee replacement Per records History of total right hip replacement History of arthroscopy of right knee History of repair of left rotator cuff History of repair of rotator cuff Right shoulder Status post uvulopalatopharyngoplasty History of hand surgery Left wrist ganglion cyst x2 History of cardiac cath - "no findings" Told symptoms r/t stress and reflux History of colonoscopy History of arthroscopy of left knee History of nasal polypectomy X2 History of neck surgery C6-7 bone graft/plate for herniated disc (2006) Hardware, C5-C6 (2022) Family History Grandmother Family history of colon cancer Family history of stomach cancer Other Family history of heart attack Family history of heart disease No family history of adverse response to anesthesia Social History Smoking Status: Current some day smoker (-advised) Tobacco Type: Cigars Cigarettes Per Day: smoking 2-3 cigars a yr/last 07/2024; Second Hand Exposure: No; Do You Dip or Chew Tobacco: Yes (hx chew tobacco quit 2023, current: nicotine pouches 2-3/day, advised); Hx Alcohol Use: Yes Alcohol type: beer and hard liquor Hx Substance Use: No Preferred Language: Czech Communication Ability: Effective Site Superintendent Required: No Beliefs That Will Affect Care: None marital status: Current Living Situation: Spouse Feels Safe at Home: Yes Assistive Devices: CPAP and Hearing Aid - Bilateral Review of Systems All systems reviewed & are unremarkable except as noted in HPI & below. Physical Exam Physical exam: Constitutional: Well developed, appears stated age Psych: patient is coherent and answers questions appropriately, normal affect Eye: Normal gaze, no redness to sclera, pupils round and equal Pulm: Normal respiratory effort, no wheezing Cardiovascular: no significant peripheral edema, palpable DP/PT pulses Skin shows no rashes, lesions No midline or paraspinal tenderness with palpation over the lumbar spine, no stepoffs Motor strength is 5/5 in bilateral hip flexors, quadriceps, tibialis anterior, extensor hallucis longus, and gastroc/soleus complex with the exception of 4 out of 5 hip flexion which recreates pain in the back, 4 out of 5 strength bilateral tibialis anterior Sensation intact to light touch in the L2-S1 dermatomes bilaterally Results & Data Results & Data Laboratory Results . Diagnostic Findings . PG Care Time/CCT Total # of Minutes Spent Total Time Spent with Patient: Total time spent is greater than 50% in coordination of care (as documented) at patient's floor/unit and/or counseling patient: Coding Level of Care Code None Diagnoses Lumbosacral disc herniation M51.27 Spondylolisthesis, lumbar region M43.16 Lumbar radiculopathy M54.16 Lumbar stenosis with neurogenic claudication M48.062
[2025-05-15] MEDS: ceFAZolin 3000MG 3,000 MG/72.5 ML BAG IV SCH ×2 (08:00→18:24)
[2025-05-15] MEDS ORDERED: ATROPINE SULFATE 0.1 MG/ML 10ML SYR IV PRN (08:08)
[2025-05-15] MEDS ORDERED: HYDROmorphone INJ 2 MG/ML SYR/VIAL IV PRN (08:08)
[2025-05-15] MEDS ORDERED: ONDANSETRON INJ 2 MG/ML 2 ML VIAL IV PRN ×2 (08:08→12:49)
[2025-05-15] MEDS ORDERED: HYDROmorphone INJ 1 MG/ML SYRINGE IV PRN ×2 (08:08→12:49)
[2025-05-15] MEDS ORDERED: GLYCOPYRROLATE 0.2 MG/ML VIAL ONE (08:21)
[2025-05-15] MEDS ORDERED: SUGAMMADEX SODIUM 200 MG/2 ML VIAL IV ONE (09:25)
[2025-05-15] MEDS ORDERED: SODIUM CHLORIDE 0.9% PF INJ 10 ML VIAL ONE (09:30)
[2025-05-15] MEDS: HEPARIN (PORCINE) 1000 UNIT/ML 10 ML (CATH LAB USE ONLY) ONE (09:42)
[2025-05-15] MEDS: SURGICEL ABSORB HEMOSTAT 2IN X 14IN TOP ONE (09:46)
[2025-05-15] MEDS: VANCOMYCIN HCL 1000MG/20ML VIAL ONE (11:26)
[2025-05-15] MEDS: FLOSEAL HEMOSTATIC MATRIX 10ML TOP ONE (11:26)
[2025-05-15] MEDS: BUPIVACAINE 0.5 % 5 MG/1 ML MPF 30ML VIAL ONE (11:33)
--- NOTE | 2025-05-15 11:49 | Post Operative Brief Note ---
PG Immediate Post Op with CF Date of Surgery May 15, 2025 Pre & Post Diagnosis Operation Date: 05/15/25 07:30 Pre-Op Diagnosis: (1) Lumbosacral disc herniation (2) Spondylolisthesis, lumbar region (3) Lumbar radiculopathy (4) Lumbar stenosis with neurogenic claudication Post-Op Diagnosis: (1) Lumbosacral disc herniation (2) Spondylolisthesis, lumbar region (3) Lumbar radiculopathy (4) Lumbar stenosis with neurogenic claudication I identified the patient and participated in the time-out.: Yes Procedure Operation Date: 05/15/25 07:30 Actual Procedures p Navigational Posterior Instrumental Lumbar Fusion and Decompression L4-L5, L5-S1 Decompression, Spinal Cord Monitoring Surgeon Erwin Jeffries MD Corporate Risk Analyst Aung Zarate PA-C Estimated Blood Loss 200 Findings Consistent with Post-Op Diagnosis Specimens Specimen Description: none per surgeon Drains Wiggins Catheter and Noel-Juarez Drain Complications none Disposition Disposition: Recovery Room
--- NOTE | 2025-05-15 12:04 | Operative Report ---
AVERY Post Operative Report Pre & Post Diagnosis Operation Date: 05/15/25 07:30 Pre-Op Diagnosis: (1) Lumbosacral disc herniation (2) Spondylolisthesis, lumbar region (3) Lumbar radiculopathy (4) Lumbar stenosis with neurogenic claudication Post-Op Diagnosis: (1) Lumbosacral disc herniation (2) Spondylolisthesis, lumbar region (3) Lumbar radiculopathy (4) Lumbar stenosis with neurogenic claudication I identified the patient and participated in the time-out.: Yes Procedure 1. TRANSFORAMINAL LUMBAR INTERBODY FUSION, POSTEROLATERAL FUSION L4-5 (81349) 2. PLACEMENT OF INTERBODY DEVICE FOR FUSION L4-5 (01414) 3. POSTERIOR NON-SEGMENTAL SPINAL INSTRUMENTATION L4-5 (72578) 4. COMPLETE LAMINECTOMY AT SITE OF INTERBODY FUSION L4 (15614) 5. L5-S1 LAMINOTOMY AND DISCECTOMY (74320) 5. USE OF CT-GUIDED STEREOTACTIC NAVIGATION FOR SPINAL INSTRUMENTATION(59478) 6. USE OF LOCAL AUTOGRAFT/ALLOGRAFT FOR SPINAL FUSION (58559, 85277) IMPLANTS: [employer] MODULEX, CATALYFT SPACER Surgeon Erwin Jeffries MD Financial Services Sales Representative Aung Zarate PA-C Estimated Blood Loss 200 Findings Consistent with Post-Op Diagnosis Specimens None Drains Sly Anesthesia Type General Complications none Disposition Disposition: Recovery Room Indications Patient was met in the clinic setting where patient had severe radiculopathy which did not respond to conservative care. We discussed continued conservative care versus lumbar interbody fusion to completely remove the pressure on the nerve as well as the remainder of the disc. Risks and benefits were discussed with the patient in clinic and elected to proceed. Risks and benefits are clearly documented in the patient's clinic note. Description of Procedure Procedure: I met the patient in the preoperative holding area, we again discussed the procedure to be performed today and the change from an anterior to posterior technique, patient agreed to proceed. Patient was brought to the operating room and placed under general anesthesia. Neuro monitoring leads attached, SCDs for DVT prophylaxis, received IV antibiotic for infection prophylaxis. Positioning: Following intubation, the patient was placed prone onto the Noel table. Maximum obtainable lumbar lordosis was achieved. Care was taken to position padding under potential pressure points. Prepping and Draping: Patient was prepped and draped in the usual sterile fashion. Verbal time-out was performed and identified the patient by name and date of , all were in agreement on the correct procedure and we elected to proceed. Incision and Exposure: An incision was made between the spinous processes of L4 and L5. Electrocautery was utilized to control all bleeding. I went through the subcutaneous layer exposing the lumbodorsal fascia. The subcutaneous layer was stripped off to the side to gain exposure to the fascial layers. I carried out subperiosteal dissection down along the spinous processes and out the lamina to expose the L4 and L5 lamina. I then dissected out to expose the L4 and L5 transverse processes bilaterally. The facet capsules were completely removed within the fusion range. Initial intraoperative CT scan: Spinous process clamp attached to L5. The [employer] O arm was then brought in an intraoperative CT scan was performed. Images were uploaded to the in room [employer] navigation unit for stereotactic guided instrumentation of the posterior lumbar spine. Insertion of Pedicle Screws Bilaterally: Navigated bur was used to breech the cortex at each pedicle screw start point. I then used a navigated awl to create a tunnel at each pedicle bilaterally. The navigation unit was then used to measure the appropriate screw size. Pedicle screws of the appropriate size were then placed bilaterally from L5 to L4 using navigated screwdriver. EMG was performed on all screw with appropriate threshold without concern. Motor evoked potentials were run without change. Second Intraoperative CT Scan for Stereotactic Navigation: After placement of the pedicle screw instrumentation the O arm was brought back in. A 2nd intraoperative CT scan was performed. The images were uploaded to the in-room viewer and I verified personally that all pedicle screw instrumentation was in good position without evidence of breach. Discectomy: Next I used the navigated bur to create a right sided laminotomy at L5-S1. The ligamentum flavum was resected on the right with Kerrison. I identified the S1 nerve root and mobilizedmit with a Palm 4 Retractor. Disc herniation was identified and the disc fragment removed with micro-pituitary. The traversing S1 nerve root was well decompressed. Transforaminal Lumbar Interbody Fusions, Decompressions, Posterior Fusion: Next, a complete laminectomy was performed at the L4 level in preparation. The spinous process was removed with Leksell rongeur and morselized for bone graft. The lamina was thinned with a high-speed bur and the remainder of the lamina was removed with Kerrison punch with a [place] used to protect the dura. Ligamentum flavum was completely removed at this level. This provided excellent decompression of the bilateral traversing L5 nerve roots over the disc space at L4-5. This bilateral decompression was greater than required for insertion of an interbody cage. A complete facetectomy was performed at the right side to allow placement of the interbody cage and better correct his coronal deformity. After adequate nerve root decompression I was able to pass a Mcmullen ball probe into the L4-5 lateral recesses bilaterally and L4-5 foramen, I turned my attention to performing a transforaminal lumbar interbody fusion. I performed a complete diskectomy at L4-5. Distraction was done with pedicle screw based distractors. The cartilaginous endplates were removed with a series of curettes and rongeurs. Sclerotic bleeding bone was seen at both endplates following complete evacuation and cleaning of the disc space. Local autograft bone harvested from the laminectomy was packed into the disc space along with allograft bone. A TLIF cage was selected after using a trial to determine the appropriate size. The cage was then impacted to appropriate depth under fluoroscopy and expanded. I then decorticated the remaining posterior lateral facet joints at L4-5 as well as the transverse processes. The posterolateral gutters and left facet were packed with allograft material as well as the remainder of the local bone harvested from the laminectomies to encourage posterolateral fusion. Preformed lumbar rods were then placed and set screws applied and final tightened. Intraoperative fluoroscopic images were obtained, confirming appropriate screw and cage position, and improved alignment. Vancomycin powder was placed on the wound edges during closure as a standard prophylactic measure. A standard layer closure was done over a deep drain using strata fix suture. Following completion of the closure and application sterile dry compressive dressing, the patient was transferred back to the supine position on stretcher. Anesthesia was reversed, the patient extubated, and brought to recovery room in stable condition having tolerated the procedure well. I attest to the content of the Intraoperative Record and any orders documented therein. Any exceptions are noted below.
--- NOTE | 2025-05-15 12:18 | Fluoroscopy Report ---
FL lumbar spine 2-3V CLINICAL HISTORY: LUMBAR COMPARISON STUDY: None FLUOROSCOPY TIME: 27 seconds FLUOROSCOPY IMAGES: 3 EXPOSURE DOSE: 29 mGy FINDINGS: Fluoroscopy was provided for lower lumbar fusion. IMPRESSION: Intraoperative fluoroscopy. ACT 112: Negative or not required by law. Electronically signed by: Ronnie Jasso M.D. 05/15/2025 12:17 PM
--- NOTE | 2025-05-15 12:46 | Anesthesiology Progress Note ---
Date of Service May 15, 2025 Anesthesia Post Procedure Vital Signs Vital Signs: Temp Pulse Pulse Resp BP Pulse Ox O2 Del Method 05/15/25 12:35 76 12 124/85 95 Room Air 05/15/25 12:25 86 12 117/85 95 Room Air 05/15/25 12:15 90 18 120/80 94 Room Air 05/15/25 12:05 36.0 C L 89 18 123/81 96 Room Air 05/15/25 06:34 Room Air, CPAP 05/15/25 06:34 36.7 C 58 L 18 139/93 96 Room Air, CPAP Pain Intensity Back: Pain Intensity: 6 Transfer of Care Handoff Completed per policy Notes Mental Status: alert / awake / arousable Patient Amnestic to Procedure: Yes Nausea / Vomiting: adequately controlled Pain: adequately controlled Airway Patency, RR, SpO2: stable & adequate BP & HR: stable & adequate Hydration State: stable & adequate Anesthetic Complications: no major complications apparent and Pt Satisfied with anesthetic care
[2025-05-15] MEDS ORDERED: FAMOTIDINE 20 MG TAB PO PRN (12:49)
[2025-05-15] MEDS ORDERED: METOCLOPRAMIDE HCL INJ 5 MG/ML 2 ML VIAL IV PRN (12:49)
[2025-05-15] MEDS ORDERED: ACETAMINOPHEN 1,000 MG/100 ML VIAL IV PRN (12:49)
[2025-05-15] MEDS ORDERED: PROMETHAZINE 12.5 MG/50.5 ML BAG IV PRN (12:49)
[2025-05-15] MEDS ORDERED: ONDANSETRON 4 MG OD TAB PO PRN (12:49)
[2025-05-15] MEDS ORDERED: NALOXONE HCL 0.4 MG/1 ML VIAL/CARP IV PRN (12:49)
[2025-05-15] MEDS ORDERED: ALUMINUM/MAGNESIUM SUSP 30 ML UDC PO PRN (12:49)
[2025-05-15] MEDS ORDERED: SILDENAFIL CITRATE 20 MG TABLET PO PRN (12:49)
[2025-05-15] MEDS ORDERED: LORazepam Inj 0.5 MG in SYRINGE 0.25 ML IV PRN (12:49)
[2025-05-15] MEDS ORDERED: DO NOT ADMINISTER PNEUMOCOCCAL VACCINE PRN (12:49)
[2025-05-15] MEDS ORDERED: SOD PHOSPHATE/SOD BIPHOSPHATE ENEMA 132 ML BTL PR PRN (12:49)
[2025-05-15] MEDS ORDERED: LORazepam 0.5 MG TAB PO PRN (12:49)
[2025-05-15] MEDS ORDERED: MAGNESIUM HYDROXIDE SUSP 30 ML UDC PO PRN (12:49)
[2025-05-15] MEDS ORDERED: DO NOT ADMINISTER FLU VACCINE PRN (12:49)
[2025-05-15] MEDS: KETOROLAC 30 MG/ML VIAL IV SCH (17:14)
[2025-05-15] MEDS: LACTATED RINGER'S 1,000 ML IV SCH (17:41)
--- NOTE | 2025-05-15 19:04 | Hospitalist Consultation ---
Date of Consultation May 15, 2025 Assessment & Plan (1) Sleep apnea: Patient will continue CPAP (2) Acid reflux: Stable will resume home meds (3) Hyperlipidemia: stable continue home meds Plan DVT prophylaxis as per primary service. History of Present Illness Attending Physician: Erwin Jeffries MD History of Present Illness 59 yo male with past medical history noted below is consulted for medical management. Patient admitted for surgical management of 1) Lumbosacral disc herniation. Patient reports no new symptoms. Allergies Allergy/AdvReac Type Severity Reaction Status Date / Time No Known Drug Allergies Allergy Unknown . Verified 05/15/25 06:27 Yeast AdvReac Mild "Can't Verified 05/15/25 06:27 breathe"/nasal congestion Home Medications Medication Instructions Recorded Confirmed Type cetirizine 10 mg capsule (Zyrtec) 10 mg PO HS 10/02/18 05/15/25 History esomeprazole magnesium 20 mg 20 mg PO QAM 10/02/18 05/15/25 History capsule,delayed release (Nexium) simvastatin 20 mg tablet 20 mg PO HS 10/02/18 05/15/25 History sildenafil (pulm.hypertension) 20 20 mg PO UD PRN Erectile 05/13/19 05/15/25 History mg tablet Dysfunction #30 tabs aspirin 81 mg tablet 81 mg PO QAM 09/15/20 05/15/25 History cholecalciferol (vitamin D3) 25 25 mcg PO DAILY 05/19/21 05/15/25 History mcg (1,000 unit) capsule Probiotic 2 cap PO DAILY 06/12/22 05/15/25 History coenzyme Q10 75 mg capsule 75 mg PO DAILY 06/12/22 05/15/25 History thjkelqy-yy-fqdde 300 mcg-K 60 1 tab PO DAILY 06/12/22 05/15/25 History mcg-lycop 600 mcg-lutein 300 mcg tablet (Centrum Silver Men) vitamin C 45 mg-zinc citrate 4 1 tab PO DAILY 04/15/25 05/15/25 History mg-elderberry 50 mg chewable tablet (Elderberry iProcure) acetaminophen 500 mg tablet 1,000 mg (2 x 500 mg) PO Q8H #60 05/16/25 Rx (Tylenol Extra Strength) tabs oxycodone 5 mg tablet 5 - 10 mg (1 - 2 x 5 mg) PO Q6H 05/16/25 Rx PRN post op pain #60 tabs tizanidine 4 mg tablet 4 mg PO Q8H PRN muscle spasm 30 05/16/25 Rx days #90 tabs Patient History Medical History Lumbar herniated disc L5-S1 Spinal stenosis at L4-L5 level Arthritis Sleep apnea CPAP-compliant Acid reflux controlled, stable per pt Hyperlipidemia Surgical History History of left cataract surgery History of right cataract surgery History of bilateral knee replacement Per records History of total right hip replacement History of arthroscopy of right knee History of repair of left rotator cuff History of repair of rotator cuff Right shoulder Status post uvulopalatopharyngoplasty History of hand surgery Left wrist ganglion cyst x2 History of cardiac cath - "no findings" Told symptoms r/t stress and reflux History of colonoscopy History of arthroscopy of left knee History of nasal polypectomy X2 History of neck surgery C6-7 bone graft/plate for herniated disc (2006) Hardware, C5-C6 (2022) Family History Grandmother Family history of colon cancer Family history of stomach cancer Other Family history of heart attack Family history of heart disease No family history of adverse response to anesthesia Social History Smoking Status: Current some day smoker (-advised) Tobacco Type: Cigars Cigarettes Per Day: smoking 2-3 cigars a yr/last 07/2024; Second Hand Exposure: No; Do You Dip or Chew Tobacco: Yes (hx chew tobacco quit 2023, current: nicotine pouches 2-3/day, advised); Hx Alcohol Use: Yes Alcohol type: beer and hard liquor Hx Substance Use: No Preferred Language: Guatemalan Communication Ability: Effective Dictaphone Technician Required: No Beliefs That Will Affect Care: None marital status: Current Living Situation: Spouse Feels Safe at Home: Yes Assistive Devices: Cane, CPAP and Glasses Review of Systems Review of Systems: All systems reviewed & are unremarkable except as noted in HPI & below Physical Exam Constitutional: WD/WN, vitals as above Neck: trachea midline, no thyromegaly Respiratory: normal respiratory effort, lungs clear to auscultation Cardiovascular: RRR, no murmur, no edema Gastrointestinal (Abdomen): normal bowel sounds, soft, nontender, no hepatosplenomegaly Psychiatric: A+Ox3, euthymic affect Results & Data Results & Data Vital Signs (Past 12 Hours) Vital Signs Temp Pulse Pulse Resp BP Pulse Ox O2 Del Method 05/15/25 18:23 36.6 C 69 16 129/82 96 Room Air 05/15/25 17:28 36.8 C 77 16 133/86 95 Room Air 05/15/25 16:52 37.2 C 68 16 124/82 96 Room Air 05/15/25 16:20 36.6 C 75 16 133/83 96 Room Air 05/15/25 15:51 62 13 119/71 96 Room Air 05/15/25 15:35 67 14 125/75 96 Room Air 05/15/25 14:35 68 12 132/85 96 Room Air 05/15/25 14:05 68 12 132/87 97 Room Air 05/15/25 13:35 74 14 131/83 96 Room Air 05/15/25 13:20 73 16 127/78 92 Room Air 05/15/25 13:05 81 12 128/86 95 Room Air 05/15/25 12:50 36.4 C L 75 12 132/81 95 Room Air 05/15/25 12:35 76 12 124/85 95 Room Air 05/15/25 12:25 86 12 117/85 95 Room Air 05/15/25 12:15 90 18 120/80 94 Room Air 05/15/25 12:05 36.0 C L 89 18 123/81 96 Room Air PG Care Time/CCT Total # of Minutes Spent Total Time Spent with Patient: Total time spent is greater than 50% in coordination of care (as documented) at patient's floor/unit and/or counseling patient: Coding Level of Care Code 14944 IN/OBS CONSULT LVL 3,45M Diagnoses Sleep apnea G47.30 Acid reflux K21.9 Hyperlipidemia E78.5
[2025-05-15] MEDS: SIMVASTATIN 20 MG TAB PO SCH (20:42)
[2025-05-15] MEDS: CETIRIZINE HCL 10 MG TABLET PO SCH (20:42)
[2025-05-15] MEDS: DOCUSATE SODIUM/SENNA 50/8.6MG TAB PO SCH (20:42)
[2025-05-16] MEDS: diphenhydrAMINE Capsule 25 MG CAP PO PRN (02:21)
[2025-05-16] MEDS: ACETAMINOPHEN 500 MG TAB PO PRN (02:21)
[2025-05-16] MEDS: POLYETHYLENE (MIRALAX) 17 GM PACK PO SCH (06:19)
[2025-05-16 07:18] LABS: Hematocrit (blood only) 33.7 % (42.0-52.0); Hemoglobin 11.0 g/dl (14.0-18.0); Immature Granulocytes # (auto) 0.04 K/uL (0.01-0.20); Immature Granulocytes % (auto) 0.4 %; Mean Corpuscular Hemoglobin 30.4 pg (25.0-34.0); Mean Corpuscular Volume 93.1 fL (80.0-100.0); Platelet Count 192 K/uL (130-400); RDW Standard Deviation 40.6 fL (36.4-46.3); Red Blood Count 3.62 M/uL (4.70-6.10); White Blood Count 9.94 K/ul (4.8-10.8)
--- NOTE | 2025-05-16 07:20 | Orthopedic Progress Note ---
Date of Service May 16, 2025 Assessment & Plan (1) Spondylolisthesis, lumbar region: (2) Lumbar radiculopathy: (3) Lumbar stenosis with neurogenic claudication: (4) S/P lumbar fusion: Plan Mobilize with PT, WBAT xrays this AM scds and ambulate diet as tolerated pain control po oxy, tylenol, muscle relaxer cont drain, likely out tomorrow Subjective s/p Lumbar fusion, reports radicular pain from pe op resolved. Minimal incisio nal pain, ambulating, voiding, tolerating PO. Review of Systems All systems reviewed & are unremarkable except as noted in HPI & below. Physical Exam / bilateral L2-S1 myotome SILT L2-S1 dermatome drain functioning dressing c/d/i Results & Data Results & Data Laboratory Results . Diagnostic Findings . PG Care Time/CCT Total # of Minutes Spent Total Time Spent with Patient: Total time spent is greater than 50% in coordination of care (as documented) at patient's floor/unit and/or counseling patient: Coding Level of Care Code 58235 Post Operative Follow-Up Diagnoses Spondylolisthesis, lumbar region M43.16 Lumbar radiculopathy M54.16 Lumbar stenosis with neurogenic claudication M48.062 S/P lumbar fusion Z98.1
[2025-05-16 07:41] LABS: Anion Gap 9.0 (3-11); Blood Urea Nitrogen 22.0 mg/dl (6-23); Calcium 8.7 mg/dl (8.6-10.3); Carbon Dioxide 26.0 mmol/L (21-32); Chloride 104.0 mmol/L (98-107); Creatinine Clr Calc Pharmacy 93.2 ml/min; Glucose 108.0 mg/dl (70-99(Fasting)); Potassium 4.0 mmol/L (3.5-5.1); Sodium 139.0 mmol/L (136-145)
[2025-05-16] MEDS: CHOLECALCIFEROL 25 MCG (1000 UNITS) TAB PO SCH (07:48)
--- NOTE | 2025-05-16 09:16 | XRay Report ---
Technique: 3 views of the lumbar spine are submitted for review Comparison is made to the prior examination dated 04/07/2025 Findings: There is a new anterior and posterior fusion of L4 and L5 with posterior fixation rods and pedicle screws and prosthetic disc placement. There is a surgical drain adjacent to the spinous process of L3. There have been L4 and L5 laminectomies. There are surgical skin susan posteriorly There is mild scoliosis. No fracture is identified. There is disc space narrowing and degenerative spur formation at L2-3 and L3-4. There are small degenerative spurs at other levels. No focal osseous lesion is seen. There are mildly prominent loops of small and large bowel that may be due to ileus Impression: 1. New L4-5 fusion 2. Unchanged scoliosis 3. Multilevel degenerative disc disease Electronically signed by Sami Martin 05-16-2025 09:15 AM
[2025-05-17 07:30] VITALS: BP 117/78; PULSE 61; RESP 14; TEMP 98.2; O2SAT 97
--- NOTE | 2025-05-17 08:59 | Orthopedic Progress Note ---
Date of Service May 17, 2025 Assessment & Plan (1) Acute blood loss as cause of postoperative anemia: expected blood loss, vitals wnl, no need for transfusion (2) S/P lumbar fusion: (3) Lumbosacral disc herniation: (4) Spondylolisthesis, lumbar region: Plan Mobilize with PT, WBAT xrays reviewed, instrumentation in good position scds and ambulate diet as tolerated pain control po oxy, tylenol, muscle relaxer cont drain, will dc with drain in place and remove tomorrow in office Subjective s/p TLIF, no issues overnight, ambulating halls without walker. Review of Systems All systems reviewed & are unremarkable except as noted in HPI & below. Physical Exam 12/15 bilateral L2-S1 myotome SILT L2-S1 dermatome drain functioning dressing c/d/i Results & Data Results & Data Laboratory Results . Diagnostic Findings . PG Care Time/CCT Total # of Minutes Spent Total Time Spent with Patient: Total time spent is greater than 50% in coordination of care (as documented) at patient's floor/unit and/or counseling patient: Coding Level of Care Code 50841 Post Operative Follow-Up Diagnoses Acute blood loss as cause of postoperative anemia D62 S/P lumbar fusion Z98.1 Lumbosacral disc herniation M51.27 Spondylolisthesis, lumbar region M43.16
--- NOTE | 2025-05-17 09:02 | Discharge Summary ---
Date of Service May 17, 2025 Admission HPI (Per Admitting) Patient is a pleasant 59-year-old gentleman who comes in today for evaluation of his lumbar stenosis with radiculopathy. He has seen my partner Dr. Hebert with concerns of pain radiating to his bilateral legs as he has had a total hip arthroplasty with him in the past. Hip implant was found to be in good position and an MRI was obtained, showed severe stenosis at the L4-5 level as well as an L5-S1 disc herniation. Patient has been taking diclofenac which he states takes the edge off the symptoms however does not completely remove them. He has also been seeing a chiropractor/physical therapist for greater than 6 weeks and has had only minor improvement, he also has a home exercise program that they provided which he has been doing on his own. He has not had any epidural injections, he reports he has had 2 prior cervical surgeries and the injections have not helped so he would like to avoid them if possible. Reports subjective weakness with ambulation. He has had the symptoms for greater than 1 year, no issues with bowel or bladder control. He reports the pain started to be worse on the left side, describes pain radiating into the superior gluteal region down the outside of the left leg lateral calf and top of the foot consistent with an L5 dermatomal pattern. He has similar symptoms on the right to a lesser degree. Approximately 6 months ago he started having pain down the right posterior leg to consistent with S1 dermatomal pattern. Admission Exam (Per Admitting) Physical exam: Constitutional: Well developed, appears stated age Psych: patient is coherent and answers questions appropriately, normal affect Eye: Normal gaze, no redness to sclera, pupils round and equal Pulm: Normal respiratory effort, no wheezing Cardiovascular: no significant peripheral edema, palpable DP/PT pulses Skin shows no rashes, lesions No midline or paraspinal tenderness with palpation over the lumbar spine, no stepoffs Motor strength is 5/5 in bilateral hip flexors, quadriceps, tibialis anterior, extensor hallucis longus, and gastroc/soleus complex with the exception of 4 out of 5 hip flexion which recreates pain in the back, 4 out of 5 strength bilateral tibialis anterior Sensation intact to light touch in the L2-S1 dermatomes bilaterally Principal Diagnosis Same as "Discharge Diagnosis" noted below under Discharge Instructions. Discharge Exam 5/5 bilateral L2-S1 myotome SILT L2-S1 dermatome drain functioning dressing c/d/i Discharge Data Consultations 05/15/25 12:49 Consult Hospitalist Routine Procedures Performed Operation Date: 05/15/25 07:30 Actual Procedures p Navigational Posterior Instrumental Lumbar Fusion and Decompression L4-L5, L5- S1 Decompression, Spinal Cord Monitoring(Not Applicable) - Erwin Jeffries MD Ordered Studies 05/15/25 07:30 CT lumbar spine wo con Routine [place] lumbar spine 2-3V Routine Hospital Course (1) S/P lumbar fusion: (2) Acute blood loss as cause of postoperative anemia: (3) Lumbosacral disc herniation: (4) Spondylolisthesis, lumbar region: (5) Lumbar radiculopathy: Plan Patient was admitted postoperatively for pain control and mobilization with physical therapy. They worked with physical therapy and met all goals. Pain was controlled with IV pain medication and transitioned to oral medications. Normal return of bowel and bladder function. They worked with physical therapy, vital signs were acceptable, no need for transfusion, deemed safe for discharge. He will be discharged with drain in place, call the office tomorrow. PG Care Time/CCT Total # of Minutes Spent Total Time Spent with Patient: Total time spent is greater than 50% in coordination of care (as documented) at patient's floor/unit and/or counseling patient: Discharge Plan Discharge Items Patient Disposition: Home - Self-Care Reason For Visit: Lumbosacral Disc Herniation, Lumbar Radiculopathy Discharge Diagnosis: s/p L4-5 TLIF Condition on Discharge: Good Activity: Per Instructions section Lifting: No more than 5 pounds Non-emergency contact: Surgeon Call non-emergency contact if: your pain is worsening, your temperature is above 101, your wound has increased redness and your wound has increased drainage Follow-up/Referrals: Aris Griffith [Primary Care Provider] - Erwin Jeffries MD [Surgeon] - (05/28/25 @ 13:30) Diet: Regular Addtl Attending Provider Instructions: Instructions for FUSION Spine Surgery DO NOT TAKE ANY ANTI-INFLAMMATORY MEDICATIONS (MOTRIN, ALEVE, MOBIC, ETC.) IF YOU HAVE UNDERGONE A LUMBAR, THORACIC, OR CERVICAL FUSION DO NOT TAKE ANY HERBAL SUPPLEMENTS MEDICATIONS: You will be given prescriptions for the following: Oxycodone, Percocet or Hydrocodone - For breakthrough pain. Cyclobenzaprine (Flexeril), Valium (Diazepam), Tizanidine (Zanaflex), or Methocarbamol (Robaxin) For muscle spasms and back pain. Take these medications as needed. They will help the most during your recovery time. Senna-s and Miralax Senna-S twice daily, 17g packet of Miralax with water once daily while taking narcotics. These medications prevent constipation caused by the pain medications. Ondansetron (Zofran) For nausea. Cephalexin (Keflex) or Sulfamethoxazole/trimethoprim (Bactrim). Antibiotic. You are given IV antibiotics while in the hospital; you may or may not be given a prescription for home; this will be decided after surgery. Your pre-surgery prescription medications With the exception of anti- inflammatory medications, blood thinners (Coumadin, Plavix, Eliquis, Pradaxa, etc.), or narcotic pain medications, you may resume your home medications. For the above medications, you will be given specific instructions; you may resume blood thinners 3-4 days after surgery. ACTIVITIES: Walking Walking is mandatory. You need to walk at least once every hour while awake. Walking will help prevent blood clots in your legs and help prevent spasms in your back. Bending/twisting Limit bending at the waist, limit twisting and turning. You will be taught to "log roll" to get out of bed. Avoid athletic activities until further notice. Lifting Do NOT lift more than 5 lbs until further notice. Driving You may drive when you are no longer taking narcotic pain medications, can safely operate the brake/gas/clutch pedals, and can move your head/neck for visibility. Tobacco All tobacco products are strictly prohibited after surgery. Any use will dramatically increase your risk of complications. This includes vapor cigarettes, marijuana, nicotine patches and gums. Bracing/Cervical Collar There is no brace required for thoracic or lumbar surgery. If you have had a single level cervical fusion, you will be given a soft collar for comfort. Multiple level cervical fusions will receive a hard collar to be worn at all times, except for showering and hygiene, until follow up in clinic. Surgical Dressing Initial operative dressing is to stay on for 2 days; you may change it if it becomes saturated. From then on, change the dressing daily with dry gauze and paper tape. Continue to change dressing until there is no discharge. Once there is no discharge on the dressing, you may leave the incision open to air but make sure to keep it out of the sun. For supplies, stop by any local pharmacy. Any type of gauze dressing is acceptable. Do not put any ointments on the wound. You may shower 48 hours after your surgery. Cover the incision with Saran Wrap and tape the edges to prevent water from contacting the incision. If water contacts the incision, pat dry. No baths or submerging the incision until seen in the clinic at follow up appointment. Next Appointment: If you do not already have one made, you will need to schedule an appointment to see Dr. Jeffries about 2 weeks after surgery. To schedule, please call [phone]. QUESTIONS Please contact the office with questions or concerns: [phone] If outside normal business hours, you will be connected with the on-call [facility]. Stand-Alone Forms: My [facility] [employer], Smoking Cessation Medications and DC Order Prescriptions: New tizanidine 4 mg Tablet 4 mg PO Q8H PRN (Reason: muscle spasm) 30 Days Qty: 90 1RF acetaminophen [Tylenol Extra Strength] 500 mg Tablet 1,000 mg PO Q8H Qty: 60 0RF oxycodone 5 mg Tablet 5 - 10 mg PO Q6H PRN (Reason: post op pain) Qty: 60 0RF Continued sildenafil (pulm.hypertension) 20 mg tablet 20 mg PO UD PRN (Reason: Erectile Dysfunction) Qty: 30 Centrum Silver Men 300-600-300 mcg tablet 1 tab PO DAILY coenzyme Q10 75 mg capsule 75 mg PO DAILY Probiotic 2 cap PO DAILY cholecalciferol (vitamin D3) 25 mcg (1,000 unit) capsule 25 mcg PO DAILY aspirin 81 mg Tablet 81 mg PO QAM esomeprazole magnesium [Nexium] 20 mg Capsule,Delayed Release(Dr/Ec) 20 mg PO QAM Zyrtec 10 mg Capsule 10 mg PO HS simvastatin 20 mg Tablet 20 mg PO HS Held [facility] 45-4-50 mg Tablet,Chewable 1 tab PO DAILY Hold Instructions: Resume on 06/26/25. Discontinued diclofenac sodium 75 mg tablet,delayed release (DR/EC) 75 mg PO BID Admission Data Admit Date/Time: 05/15/25 07:27 Attending Provider: Erwin Jeffries Admit Provider: Erwin Jeffries Primary Care Provider: Aris Griffith Other Providers: Morgan De Oliveira; Ilan Vargas; Sky Renee; Isaias Goodson; Aung Colon; Melanie Amador; Anais Vázquez; Macey Hebert; Delaney Patrick; Yair Donohue; Gricelda Larsen; Hugh Ward; Luba Pablo; Ilan Manzo; Maximino Martell; Clarence Reece; Grace Gardner; Grace Cr; Karey Maldonado; Osvaldo Oliveros; Shayy Escobar.; Jimbo Fajardo; Yaw Posada; Reginald Aranda; Omar Mcginnis.; Marli Desai; Nova Mendes; Brett Ruiz; Wendi Fischer; Kalpana Kumar; Guadalupe Diehl; Jess Vasquez; Enrique Conner; Alexx Bejarano; Toshia Atwood; Jorje Arora; Maral Louis; Toro Garber A; Saniya Mccullough; Jocelyn Fletcher; Dorita Evans; Enoch Cope; Dayana Fletcher; Ermias Flaherty; Bert Vargas; Kala Song; Amy Angulo; Ramiro De A
== END 2025-05-17 10:25 | disposition home or self-care (01) | DRG 402 ==
LOC: ASU 06:24 → 3N 07:27
DX: M43.16 Spondylolisthesis, lumbar region; Z91.048 Other nonmedicinal substance allergy status; Z79.899 Other long term (current) drug therapy; M99.73 Connective tissue and disc stenosis of intervertebral foramina of lumbar region; M48.062 Spinal stenosis, lumbar region with neurogenic claudication; F17.290 Nicotine dependence, other tobacco product, uncomplicated; D62 Acute posthemorrhagic anemia; Z79.82 Long term (current) use of aspirin; M51.17 Intervertebral disc disorders with radiculopathy, lumbosacral region